=== PATIENT | male | born 1990 | race Caucasian/White ===

== ENCOUNTER 2021-08-17 18:50 | Emergency (ER) | payer OTHER, SELFPAY ==
[2021-08-17 18:51] VITALS: BP 136/88; PULSE 69; RESP 15; TEMP 36.4; O2SAT 98; BMI 38.5
--- NOTE | 2021-08-17 20:05 | CT_ITS ---
EXAMINATION : Head CT w/out contrast HISTORY : Pain COMPARISON : None. TECHNIQUE : Multiple contiguous axial images were obtained from the skull base to the vertex without intravenous contrast. A radiation dose optimization technique was used for this scan. FINDINGS : The ventricles and sulci are normal in size. There is no evidence for acute intracranial hemorrhage, mass effect, or midline shift. There is no extra-axial fluid collection. There is normal jung-white differentiation, without CT evidence of acute ischemia or infarct. The skull base and calvarium are unremarkable. The orbits are unremarkable. The paranasal sinuses are clear. The mastoid air cells are well-aerated. The soft tissues are unremarkable. CT/Brain/Head without Contrast IMPRESSION: No acute intracranial abnormality. Electronically Signed: Leo Pulido MD at 20:57 EDT Tel , Service support ,
--- NOTE | 2021-08-17 20:06 | EDS_ITS ---
HPI History of Present Illness Chief Complaint: Headache Informant: patient and spouse/S.O. Onset/Context/Timing Onset: Weeks Context: Gradual Timing: Intermittent and Waxes and wanes Quality -Headache: Positive for Throbbing and Other (Pressure over the maxillary, ethmoid and frontal sinuses) Location: Facial sinuses Current Severity: Mild Maximum Severity: Moderate Worsened by: Possibly change in position Relieved by: Nothing Associated Symptoms/Injury Associated Symptoms: Positive for Sinus Pressure and Blurred Vision; Negative for Fever, Nausea, Vomiting, Sore Throat, Numbness, Tingling, Preceding Aura, Visual Changes, Photophobia and Visual Loss Injury - POWELL: Negative for Direct Trauma Narrative Narrative: Patient is a 30-year-old [facility] male who presents with headache that is been severe for the past week. Has had intermittent headaches for 1 year. Is never had a work-up. There is no family history of migraine headaches. There is no history of subarachnoid hemorrhage. He has no known history of aneurysm. He saw his primary care physician earlier this week and was treated with medication. He saw ENT today and they were uncertain of the cause. He denies double vision or loss of vision. Nuys ringing his ears, decreased hearing or drainage from his ears. Denies rhinorrhea, congestion or postnasal drainage. He denies sore throat. Nuys neck pain. Denies cardiac respiratory symptoms. Denies GI symptoms. He denies rash. No history of trauma. Prior similar symptoms: Yes Recent Illness/Hospitalization: Yes PFSH PFSH Medical History no medical history Home Medications telmisartan 20 mg PO DAILY 08/17/21 [History Last Taken Unknown] Allergy/AdvReac Type Severity Reaction Status Date / Time No Known Allergies Allergy Verified 08/17/21 18:51 Surgical History no surgical history no surgical history Social History (Updated 08/17/21 @ 20:[address] Mele Sosa MD) household members: spouse and children Smoking Status: Never smoker substance use type: does not use do you feel safe at home: Yes ROS ROS ED Constitutional Constitutional ED: Denies chills, fever(s), subjective or sweats Eyes Eyes: Reports blurry vision; Denies change in vision or diplopia ENT ENT ED: Denies ear pain, rhinorrhea or sore throat Cardiovascular Cardiovascular: Denies chest pain, orthopnea or palpitations Respiratory/Chest Respiratory/Chest: Denies cough, dyspnea, dyspnea on exertion or orthopnea Gastrointestinal Gastrointestinal: Denies abdominal pain, diarrhea, nausea or vomiting Genitourinary Genitourinary ED: Denies dysuria, hematuria or urinary frequency Musculoskeletal Musculoskeletal: Denies arthralgias, myalgias or neck pain Integumentary Denies abscess or rash Neurologic Neurologic: Reports headache(s) and other Details: He denies trouble with balance or walking. He denies trouble with speech or swallowing. ; Denies paresthesias or weakness Hematologic/Lymphatic Hematologic/Lymphatic: Denies easy bleeding or easy bruising Allergic/Immunologic Allergic/Immunologic ED: Denies mouth swelling, tongue swelling or urticaria EXAM Physical Exam Const Vital Signs: 08/17/21 18:51 Temperature 97.5 F L Temperature Source Temporal Pulse Rate 69 Respiratory Rate 15 Blood Pressure 136/88 H Blood Pressure Mean 104 Pulse Ox 98 Oxygen Delivery Method Room Air Positive well nourished and well developed General Appearance ED: well developed and NAD HEENT Reports normocephalic, TM's clear and moist mucous membranes atraumatic and tenderness; Negative for temporal artery tenderness or vesicular rash Face and Sinus: sinus tenderness Positive for frontal, ethmoid and maxillary Tympanic Membrane ED: Yes TM's clear Eyes PERRL and EOMs intact bilaterally General Eye ED: Negative for pale conjunctiva or scleral icterus Neck no lymphadenopathy, supple and no meningeal signs Resp normal respiratory effort and clear to auscultation bilaterally Auscultation: Negative for diminished lung sounds Cardio regular rate, regular rhythm, S1 normal heart sound, S2 normal heart sound and no murmurs GI non-tender and non-distended Auscultation: normoactive bowel sounds Palpation: soft Back/Spine no CVA tenderness Extremity full ROM and normal capillary refill Neuro CN's II-XII intact bilaterally Veronica Coma Scale: document GCS findings Spontaneous Obeys Commands Oriented 15 Sensorium / Orientation: awake and alert Motor Exam: strength 5/5 throughout Psych mental status grossly normal Skin General Skin Exam: elasticity normal Lesions: no lesions Rashes: no rashes MDM MDM MDM Narrative Medical decision making narrative: CT was obtained since with positional component this may represent sinusitis. Patient was treated with IV Benadryl, Reglan and Toradol. Will reassess after CT has been performed and reviewed. Patient was reassessed at 2114. He reports marked improvement with therapy. He was informed of his CAT scan results. He asked if he should continue taking his blood pressure meds. He was told he should. His blood pressure is elevated here 136/88. He was started on medication by his doctor this week. Radiography Diagnostic Testing: Radiology Impression Brain CT 08/17/21 20:05 IMPRESSION: No acute intracranial abnormality. Electronically Signed: Leo Pulido MD at 20:57 EDT Tel , Service support , Discharge Plan Triage Chief Complaint: Headache ED Provider: Mele Sosa Dx/Rx/DC Orders Clinical Impression: Cephalgia, Benign essential hypertension Prescriptions: No Action telmisartan 40 mg tablet 20 mg PO DAILY RF: 0 Primary Care Provider: Renny Lovell Referrals: Renny Lovell DO [Primary Care Provider] - 1 Week Activity Restrictions/Additional Instructions: You should take your blood pressure medicine as prescribed by your doctor, Dr. Lovell. My missing doses you may have problems with elevated blood pressure and may cause harm. Disposition Disposition: Home, Self Care
[2021-08-17] MEDS: Ketorolac 15 MG/ML Vial IV (20:15)
[2021-08-17] MEDS: DiphenhydrAMINE 50 MG/ML Syringe 25 MG IV (20:15)
[2021-08-17] MEDS: Metoclopramide 10 MG/2 ML Vial IV (20:15)
[2021-08-17] MEDS: 0.9% Normal Saline 1,000 ML 999 ML IV (20:15)
== END 2021-08-17 21:33 | disposition home or self-care (01) ==
PROVIDERS: Emergency Provider Emergency Medicine; PCP Family Medicine
DX: R51.9 Headache, unspecified (principal); I10 Essential (primary) hypertension; Z79.899 Other long term (current) drug therapy
CPT/HCPCS: 70450; 96374; 96375; 99283; J7030